=== PATIENT | female | born 1950 | race Caucasian/White ===

== ENCOUNTER 2018-05-11 17:14 | Inpatient (IN) | payer MEDICARE ==
[2018-05-11] MEDS ORDERED: methylPREDNISolone SOD SUCCI 125 MG/2 ML VIAL IV STA (18:20)
[2018-05-11] MEDS ORDERED: VANCOMYCIN IV PER PHARMACY 1 EACH MISC MISCELLANE PRN (18:23)
[2018-05-11] MEDS ORDERED: MORPHINE SULFATE 4 MG/ML SYRINGE IVP PRN (18:23)
[2018-05-11] MEDS ORDERED: MORPHINE SULFATE 4 MG/ML SYRINGE IVP STA (18:23)
--- NOTE | 2018-05-11 18:28 | ED ---
General Adult HPI - General Chief complaint: Extremity Problem,Nontraumatic Stated complaint: fall/chest pain/cellulitis Time Seen by Provider: 05/11/18 17:23 Source: patient, EMS, RN notes reviewed, old records reviewed Mode of arrival: EMS Limitations: no limitations - History of Present Illness Initial comments: This is a 67-year-old female the ER for multiple medical complaints. is accepted in transfer for evaluation regarding multiple comorbidities. Patient currently denies any complaints of chest pain shortness of breath or abdominal pain. Patient states she is very hungry. Patient with transferring physician patient has multiple issues was found after a fall and weakness and inability to get up. Did have found elevated troponin known gangrene of right lower extremity. - Related Data Home Medications Medication Instructions Recorded Confirmed Cyclobenzaprine [Flexeril] 10 mg PO BID 05/11/18 05/11/18 Fluticasone Nasal [place] [Flonase 1 spray EA NOSTRIL DAILY 05/11/18 05/11/18 Nasal [place]] Isosorbide Mononitrate ER [Imdur] 30 mg PO DAILY 05/11/18 05/11/18 Naproxen 500 mg PO BID 05/11/18 05/11/18 Nitroglycerin Sl Tabs [Nitrostat] 0.4 mg PO Q5M PRN 05/11/18 05/11/18 OXcarbazepine [Trileptal] 450 mg PO DAILY 05/11/18 05/11/18 Omeprazole 20 mg PO DAILY 05/11/18 05/11/18 Simvastatin 80 mg PO DAILY 05/11/18 05/11/18 Venlafaxine HCl [Effexor XR] 150 mg PO DAILY 05/11/18 05/11/18 glipiZIDE [Glucotrol] 10 mg PO BID 05/11/18 05/11/18 Allergies Allergy/AdvReac Type Severity Reaction Status Date / Time acetaminophen [From Vicodin] Allergy Unknown Verified 05/11/18 18:08 Carbapenems Allergy Unknown Verified 05/11/18 18:04 copper Allergy Unknown Verified 05/11/18 18:08 haloperidol [From Haldol] Allergy Unknown Verified 05/11/18 18:08 hydrocodone [From Vicodin] Allergy Unknown Verified 05/11/18 18:08 Iodine and Iodide Containing Allergy Unknown Verified 05/11/18 18:08 Produc latex Allergy Unknown Verified 05/11/18 18:08 lisinopril Allergy Unknown Verified 05/11/18 18:04 morphine Allergy Unknown Verified 05/11/18 18:04 Review of Systems ROS Statement: Those systems with pertinent positive or pertinent negative responses have been documented in the HPI. ROS Other: All systems not noted in ROS Statement are negative. Past Medical History Past Medical History: Cancer, COPD, CVA/TIA, Diabetes Mellitus, Myocardial Infarction ([place]) Additional Past Medical History / Comment(s): uterine cancer, hiatal hernia, History of Any Multi-Drug Resistant Organisms: None Reported Past Psychological History: No Psychological Hx Reported Smoking Status: Current every day smoker Past Alcohol Use History: None Reported Past Drug Use History: None Reported General Exam - General Exam Comments Initial Comments: Patient does have right second toe dry gangrene Limitations: no limitations General appearance: alert, in no apparent distress Head exam: Present: atraumatic, normocephalic, normal inspection Eye exam: Present: normal appearance, PERRL, EOMI. Absent: scleral icterus, conjunctival injection, periorbital swelling ENT exam: Present: normal exam, mucous membranes moist Neck exam: Present: normal inspection. Absent: tenderness, meningismus, lymphadenopathy Respiratory exam: Present: normal lung sounds bilaterally. Absent: respiratory distress, wheezes, rales, rhonchi, stridor Cardiovascular Exam: Present: regular rate, normal rhythm, normal heart sounds. Absent: systolic murmur, diastolic murmur, rubs, gallop, clicks GI/Abdominal exam: Present: soft, normal bowel sounds. Absent: distended, tenderness, guarding, rebound, rigid Extremities exam: Present: normal inspection, full ROM, normal capillary refill. Absent: tenderness, pedal edema, joint swelling, calf tenderness Back exam: Present: normal inspection Neurological exam: Present: alert, oriented X3, CN II-XII intact Psychiatric exam: Present: normal affect, normal mood Skin exam: Present: warm, dry, intact, normal color. Absent: rash Course Vital Signs 05/11/18 17:59 Temperature 98.5 F Pulse Rate 100 Respiratory 18 Rate Blood Pressure 102/57 O2 Sat by Pulse 98 Oximetry Medical Decision Making - Medical Decision Making 67 female accepted in transfer for evaluation regarding multiple issues including falls with weakness, elevated troponin, gangrene toe. To be admitted for evaluation and management of above Disposition Clinical Impression: Cellulitis, Gangrene, COPD (chronic obstructive pulmonary disease), Falls, Weak , Elevated troponin Disposition: ADMITTED IP TO THIS HOSP Condition: Fair Referrals: Bassem East MD [Primary Care Provider] - 1-2 days
[2018-05-11] MEDS ORDERED: VANCOMYCIN 1,500 MG in SODIUM CHLORIDE 0.9% 250 ML IVPB ONE (19:00)
[2018-05-11] MEDS: IPRATROPIUM-ALBUTEROL 3 ML NEB INHALATION SCH (19:29)
[2018-05-11] MEDS: SODIUM CHLORIDE 0.9% 1,000 ML IV SCH (19:38)
[2018-05-11 22:58] LABS: Basophils % (A) 0 %; Eosinophils % (A) 0 %; HCT 31.5 % (34.0-46.0); HGB 9.7 gm/dL (11.4-16.0); Hypochromasia Slight; Lymphocytes # (A) 0.4 k/uL (1.0-4.8); Lymphocytes % (A) 3 %; MCHC 30.8 g/dL (31.0-37.0); MCV 90.8 fL (80.0-100.0); Mean Platelet Volume 7.1; Monocytes # (A) 0.3 k/uL (0-1.0); Monocytes % (A) 2 %; Neutrophils # (A) 12.5 k/uL (1.3-7.7); Neutrophils % (A) 93 %; Platelet Count 306 k/uL (150-450); RBC 3.47 m/uL (3.80-5.40); RDW 14.3 % (11.5-15.5); WBC 13.3 k/uL (3.8-10.6)
[2018-05-11 23:14] LABS: Calcium 8.8 mg/dL (8.4-10.2); Potassium 4.7 mmol/L (3.5-5.1)
[2018-05-11] MEDS: methylPREDNISolone SOD SUCCI 125 MG/2 ML VIAL IV SCH (23:44)
[2018-05-11] MEDS: AMPICILLIN-SULBACTAM 3 GM in SODIUM CHLORIDE 0.9% 100 ML IVPB SCH (23:44)
[2018-05-12 02:07] VITALS: BMI 31.6
[2018-05-12 06:03] LABS: Glucose,Whole Blood 457 mg/dL (75-99)
[2018-05-12 06:03] LABS: Glucose,Whole Blood 449 mg/dL (75-99)
[2018-05-12] MEDS: methylPREDNISolone SOD SUCCI 125 MG/2 ML VIAL IV SCH (06:30)
[2018-05-12] MEDS: AMPICILLIN-SULBACTAM 3 GM in SODIUM CHLORIDE 0.9% 100 ML IVPB SCH ×3 (06:30→17:25)
[2018-05-12] MEDS: INSULIN ASPART 100 UNIT/ML 1 ML 10 ML VIAL SQ SCH ×3 (06:30→17:22)
[2018-05-12 06:48] LABS: Basophils % (A) 0 %; Eosinophils % (A) 0 %; HGB 10.2 gm/dL (11.4-16.0); Hypochromasia Moderate; Lymphocytes # (A) 0.5 k/uL (1.0-4.8); Lymphocytes % (A) 4 %; MCH 27.9 pg (25.0-35.0); MCHC 30.1 g/dL (31.0-37.0); MCV 92.8 fL (80.0-100.0); Mean Platelet Volume 7.3; Monocytes # (A) 0.2 k/uL (0-1.0); Monocytes % (A) 1 %; Neutrophils # (A) 13.2 k/uL (1.3-7.7); Neutrophils % (A) 94 %; Platelet Count 344 k/uL (150-450); RBC 3.66 m/uL (3.80-5.40); RDW 14.3 % (11.5-15.5)
[2018-05-12 07:08] LABS: Calcium 9.1 mg/dL (8.4-10.2); Potassium 5.6 mmol/L (3.5-5.1); Total Bilirubin 0.3 mg/dL (0.2-1.3); Total Protein 5.8 g/dL (6.3-8.2)
[2018-05-12] MEDS: IPRATROPIUM-ALBUTEROL 3 ML NEB INHALATION SCH ×4 (07:13→16:04)
[2018-05-12] MEDS ORDERED: ENOXAPARIN 40 MG/0.4 ML SYRINGE SQ SCH (09:00)
[2018-05-12] MEDS ORDERED: VANCOMYCIN 1,250 MG in SODIUM CHLORIDE 0.9% 250 ML IVPB SCH (10:00)
[2018-05-12] MEDS ORDERED: ATORVASTATIN 40 MG TAB PO SCH (10:00)
[2018-05-12] MEDS ORDERED: ISOSORBIDE MONONITRATE ER 30 MG TAB.ER.24H PO SCH (10:00)
[2018-05-12] MEDS ORDERED: ASPIRIN 81 MG PO SCH (10:15)
--- NOTE | 2018-05-12 10:32 | CONS ---
CONSULTATION Mrs. Floyd is a 67-year-old female who was transferred from [place] for further evaluation. The patient presented there with recurrent falls. According to her, she has fallen 8 times yesterday and was on the ground for a while. She has some redness in the leg and because of that she came in. She was found to have minimal troponin elevation. The patient denies any change in her breathing. She denies any palpitation or syncope. She has a history of coronary artery disease. According to her has underwent cardiac catheterization by Dr. Mei a few years ago. Details of that are not available to me. She was told she has obstructive disease and prior myocardial infarction although it is not clear. She has no history of CHF, very rare use of nitroglycerin. She is quite teary while I am talking to her and crying at times. She denies any palpitation. She has some peripheral edema. No clear PND no orthopnea. Her coronary risk factors are remarkable for history of chronic tobacco use, history of hyperlipidemia, diabetes. MEDICATIONS: Her medications at home medications include simvastatin 80 mg daily, isosorbide mononitrate 30 mg daily, glipizide, venlafaxine, omeprazole, Naprosyn, Flexeril, and Trileptal. REVIEW OF SYSTEMS: RESPIRATORY SYSTEM: She had dyspnea on exertion. No recent wheezing. GI SYSTEM: She had some abdominal discomfort, but no recent GI bleeding. She has some nausea. SYSTEM: No dysuria or hematuria. NERVOUS SYSTEM: She denies stroke. PHYSICAL EXAMINATION: A 67-year-old female, appears older than stated age. Teary eyes, crying at times. Blood pressure running in the 140s to 150s with the heart rate in the 90s. HEAD: Normocephalic with a lesion on her scalp. EYES: Sclerae anicteric. NECK: Normal carotid upstroke. No bruit. LUNGS: Clear to auscultation. HEART: Regular rate and rhythm, S1, S2. No S3. With systolic murmur heard at the base. No diastolic murmur. No rub. ABDOMEN: Soft, nontender. Positive bowel sounds. No organomegaly. EXTREMITIES: With 1+ edema bilaterally and erythema. Decreased distal pulses. She has a necrotic right second toe. LAB DATA: Lab data revealed a BUN and creatinine 53 and 1.4, potassium 5.6, AST of 61, alkaline phosphatase of 265, hemoglobin of 10.2, white blood cell of 14. On the lab data in [place], the troponin is 0.57. Her EKG revealed a sinus mechanism, rate of [address]-T wave changes. IMPRESSION: 1. Multiple falls, etiology unclear. 2. Cellulitis, probable gangrene of the toe. 3. History of coronary artery disease according to the patient, details not available. 4. Minimal elevation of troponin does not represent a type 1 event most likely type 2 event. 5. Chronic tobacco use. 6. History of diabetes. 7. Hyperlipidemia. 8. Renal failure. RECOMMENDATION: From the cardiac standpoint, I will re-initiate the treatment with the isosorbide and the statin. I will add a beta-imelda to her regimen. Obtain echocardiogram with Doppler. Follow her renal function. The patient will be started on aspirin 81 mg daily. I will try to obtain the prior testing. Depending on her progress, further recommendation will be made. Thank you for this consult. We will follow with you. MMODL / IJN: [id number] /
--- NOTE | 2018-05-12 10:57 | XR ---
EXAMINATION TYPE: XR chest 1V DATE OF EXAM: 05/12/2018 COMPARISON: 04/25/2013 INDICATION: COPD TECHNIQUE: Single frontal view of the chest is obtained. FINDINGS: The heart size is normal. The pulmonary vasculature is normal. The lungs are clear. IMPRESSION: 1. No acute pulmonary process.
[2018-05-12] MEDS: SODIUM CHLORIDE 0.9% 1,000 ML IV SCH ×2 (11:03→14:13)
--- NOTE | 2018-05-12 11:48 | P.CNPUL ---
History of Present Illness Consult date: 05/12/18 Requesting physician: Ranjeet Garg Reason for consult: dyspnea, COPD Chief complaint: Fall, weakness History of present illness: This is a 67-year-old female patient who follows with Dr. East as her primary care physician. She has history of previous CVA/TIA with aphasia, diabetes mellitus, coronary artery disease/myocardial infarction, uterine cancer, hiatal hernia, renal failure, cellulitis of the right foot with a necrotic second toe. She also has a history of chronic obstructive pulmonary disease and chronic and ongoing tobacco dependence and follows in our office with Dr. Lea for the same. She was transferred here from [facility] yesterday after being admitted for a fall at home and injuring the back of her head. Computed tomography scan of the brain showed no acute process. She did have cellulitis of the right foot and a very necrotic right second toe, she also had a troponin leak and was transferred here for further evaluation. She has been initiated on vancomycin and Unasyn. She is seen today in consultation on the selective care unit. She is currently awake and alert. She is somewhat emotional, teary- eyed and crying. She's been rather noncompliant with the staff. She did recognize Dr. Lea and is cooperative with him. She currently denies any worsening shortness of breath, cough or congestion. Chest x-ray showed no acute pulmonary process. She is afebrile. White count 14.0. Maintaining O2 saturations in the 90s on 2 L/m per nasal cannula. She's been initiated on bronchodilators but has refused them. Review of Systems Constitutional: Reports chronic pain, Reports weakness Eyes: denies blurred vision, denies decreased vision Ears: deny: decreased hearing Ears, nose, mouth and throat: Reports dysphagia Cardiovascular: Reports decreased exercise tolerance, Reports shortness of breath Respiratory: Reports dyspnea Gastrointestinal: Denies abdominal pain, Denies diarrhea, Denies nausea, Denies vomiting Genitourinary: Denies dysuria, Denies hematuria Musculoskeletal: Reports frequent falls, Reports gait dysfunction, Reports limitation of motion, Reports muscle weakness, Reports redness of joints Musculoskeletal: right: foot pain, foot swelling Integumentary: Reports foot/leg ulcers, Reports sores Neurological: Reports aphasia, Reports balance difficulties, Reports change in mentation, Reports head injury, Reports lack of coordination, Reports weakness Endocrine: Denies fatigue, Denies weight change Hematologic/Lymphatic: Reports as per HPI Allergic/Immunologic: Reports as per HPI Past Medical History Past Medical History: Cancer, COPD, CVA/TIA, Diabetes Mellitus, Myocardial Infarction ([place]) Additional Past Medical History / Comment(s): uterine cancer, hiatal hernia, Last Myocardial Infarction Date:: n/a History of Any Multi-Drug Resistant Organisms: None Reported Past Surgical History: No Surgical Hx Reported Past Anesthesia/Blood Transfusion Reactions: No Reported Reaction Past Psychological History: Depression Smoking Status: Current some day smoker Past Alcohol Use History: None Reported Additional Past Alcohol Use History / Comment(s): started smoking at the age of 15 Past Drug Use History: None Reported - Past Family History Father Family Medical History: No Reported History Medications and Allergies Home Medications Medication Instructions Recorded Confirmed Type Cyclobenzaprine [Flexeril] 10 mg PO BID 05/11/18 05/11/18 History Fluticasone Nasal [place] [Flonase 1 spray EA NOSTRIL DAILY 05/11/18 05/11/18 History Nasal [place]] Isosorbide Mononitrate ER [Imdur] 30 mg PO DAILY 05/11/18 05/11/18 History Naproxen 500 mg PO BID 05/11/18 05/11/18 History Nitroglycerin Sl Tabs [Nitrostat] 0.4 mg PO Q5M PRN 05/11/18 05/11/18 History OXcarbazepine [Trileptal] 450 mg PO DAILY 05/11/18 05/11/18 History Omeprazole 20 mg PO DAILY 05/11/18 05/11/18 History Simvastatin 80 mg PO DAILY 05/11/18 05/11/18 History Venlafaxine HCl [Effexor XR] 150 mg PO DAILY 05/11/18 05/11/18 History glipiZIDE [Glucotrol] 10 mg PO BID 05/11/18 05/11/18 History Allergies Allergy/AdvReac Type Severity Reaction Status Date / Time acetaminophen [From Vicodin] Allergy Unknown Verified 05/11/18 18:08 Carbapenems Allergy Unknown Verified 05/11/18 18:04 copper Allergy Unknown Verified 05/11/18 18:08 haloperidol [From Haldol] Allergy Unknown Verified 05/11/18 18:08 hydrocodone [From Vicodin] Allergy Unknown Verified 05/11/18 18:08 Iodine and Iodide Containing Allergy Unknown Verified 05/11/18 18:08 Produc latex Allergy Unknown Verified 05/11/18 18:08 lisinopril Allergy Unknown Verified 05/11/18 18:04 morphine Allergy Unknown Verified 05/11/18 18:04 Physical Exam Vitals: Vital Signs Temp Pulse Pulse Resp BP BP Pulse Ox 05/12/18 08:00 98.5 F 114 H 22 150/66 97 05/11/18 23:00 97.8 F 89 18 95/50 96 05/11/18 22:00 97.9 F 108 H 20 140/62 96 05/11/18 20:28 95 17 93/54 05/11/18 19:40 96 18 05/11/18 19:36 94 L 05/11/18 19:31 95 18 05/11/18 19:20 99 16 97/54 94 L 05/11/18 17:59 98.5 F 100 18 102/57 98 Intake and Output 05/11/18 05/12/18 05/12/18 22:59 06:59 14:59 Intake Total 200 Balance 200 Intake: Intake, IV Titration 200 Amount Sodium Chloride 0.9% 1, 200 000 ml @ 100 mls/hr IV . Q10H [facility] Rx#:[id number] Other: Voiding Method Bedside Commode # Voids 1 Weight 71 kg - Constitutional General appearance: disheveled, obese - EENT Eyes: EOMI, PERRLA ENT: hearing grossly normal Ears: bilateral: normal - Neck Neck: normal ROM Carotids: bilateral: upstroke normal Thyroid: bilateral: normal size - Respiratory Respiratory: bilateral: CTA - Cardiovascular Rhythm: regular Heart sounds: normal: S1, S2 Abnormal Heart Sounds: systolic murmur - Gastrointestinal General gastrointestinal: normal bowel sounds - Integumentary Integumentary: cellulitis - Neurologic Neurologic: CNII-XII intact - Musculoskeletal Musculoskeletal: generalized weakness - Psychiatric Psychiatric: A&O x's 3 Results - Laboratory Findings CBC and BMP: 05/12/18 06:16 05/12/18 06:16 Abnormal lab findings: Abnormal Labs 05/11/18 05/11/18 05/12/18 22:50 22:50 05:59 WBC 13.3 H RBC 3.47 L Hgb 9.7 L Hct 31.5 L MCHC 30.8 L Neutrophils # 12.5 H Lymphocytes # 0.4 L Sodium Potassium Carbon Dioxide BUN 48 H Creatinine 1.30 H Glucose 315 H POC Glucose (mg/dL) 457 H AST Alkaline Phosphatase Total Protein Albumin 05/12/18 05/12/18 05/12/18 06:01 06:16 06:16 WBC 14.0 H RBC 3.66 L Hgb 10.2 L Hct MCHC 30.1 L Neutrophils # 13.2 H Lymphocytes # 0.5 L Sodium 136 L Potassium 5.6 H Carbon Dioxide 18 L BUN 53 H Creatinine 1.40 H Glucose 447 H POC Glucose (mg/dL) 449 H AST 61 H Alkaline Phosphatase 265 H Total Protein 5.8 L Albumin 3.0 L - Diagnostic Findings Chest x-ray: image reviewed Assessment and Plan Assessment: Impression: #1 Multiple falls from unclear etiology. Previous history of CVA with aphasia. Trauma to the back of her head, computed tomography scan revealed no acute abnormalities. #2 Necrotic right second toe with erythema, warmth of the foot. Currently on vancomycin and Unasyn. Vascular consult pending. #3 Altered mental status. #4 Acute on chronic renal failure. #5 Anemia. #6 Hyperkalemia. #7 Chronic obstructive pulmonary disease, currently inactive and stable. #8 Chronic and ongoing tobacco dependence. #9 History of coronary artery disease. #10 Hypertension. #11 Diabetes mellitus. #12 History of depression. #13 Poor overall functional performance based on the above-mentioned multiple comorbidities. Plan: The patient was seen and evaluated by Dr. Lea. Chest x-ray and labs were reviewed. No acute pulmonary process. We'll continue with bronchodilators for now. Continue vancomycin and Unasyn. Await vascular consultation regarding the necrotic right second toe. Lovenox for DVT prophylaxis. We will continue to follow make further recommendations based on her clinical status. I, the cosigning physician, performed a history & physical examination of the patient. Lungs sounds are clear, diminished. Maintaining good O2 saturations in the 90s on 2 L/m per nasal cannula. I discussed the assessment and plan of care with my nurse practitioner, Zoe Sainz. I attest to the above consultation as dictated by her. Time with Patient: Greater than 30
--- NOTE | 2018-05-12 12:39 | FL ---
EXAMINATION TYPE: FL barium swallow w video DATE OF EXAM: 05/12/2018 COMPARISON: NONE HISTORY: Aspiration TECHNIQUE: Fluoroscopy. FINDINGS: Fluoroscopic guidance was provided for the procedure performed in conjunction with the [facility] [place] [facility]. Please see complete report forthcoming from the Speech Pathology departmen t. Various consistencies from thin liquid to solids were administered. Fluoroscopy time 2.58 minutes. Number of images: 0. Aspiration with thin and nectar thick liquids is evident along the posterior trachea. Coughing was ev ident during this aspiration. Deep penetration was also present with these consistencies. No penetrat ion or aspiration was evident with solids or nectar thick. There was pooling within the vallecula with delayed transit. IMPRESSION: 1. Aspiration with thin and nectar thick liquids.
[2018-05-12 12:53] LABS: Glucose,Whole Blood 424 mg/dL (75-99)
[2018-05-12 15:19] VITALS: BP 121/60; RESP 18; TEMP 98.3
[2018-05-12] MEDS ORDERED: NITROGLYCERIN SL TABS 0.4 MG TAB SUBLINGUAL PRN (16:03)
[2018-05-12 16:04] VITALS: PULSE 100
[2018-05-12 16:25] LABS: Glucose,Whole Blood 304 mg/dL (75-99)
--- NOTE | 2018-05-12 17:02 | HP ---
HISTORY AND PHYSICAL DATE OF ADMISSION: 05/11/18 DATE OF SERVICE: 05/12/18 PRESENTING COMPLAINT: Fall to the ground. HISTORY OF PRESENTING COMPLAINT: This is a 67-year-old patient follows with Dr. East. The patient's chronic stable medical conditions include COPD, gait dysfunction, coronary artery disease. The patient apparently lives with her son. The patient has been having multiple falls, fell down again, apparently was on the floor for 15 hours. Son had called and then patient was taken to [facility]. The patient also has developed gangrene of the right second toe going on for good at least 2-3 months. The patient is not taking any medical opinion because of insurance and she owes some bills. Some redness is present and adjoining part of the foot. The patient was noticed last night having trouble swallowing and speech therapy was consulted for the same. This morning, the patient did have a modified barium swallow and patient had penetration to both thin and thick liquids and was suggested to be n.p.o. Speech therapy and nursing informed me patient is very irate about the same and wanted real food and she wanted to leave against medical advice and she has already called her son to take her from here. The patient does smoke cigarettes. Currently lives with her son. The patient has been smoking for close to 42 years. Denies alcohol. The patient also complained of pain all over the body. No particular side including the feet. FAMILY HISTORY: Reviewed; noncontributory presentation. HOME MEDICATIONS: 1. Nitrostat 0.4 q.5h p.r.n. 2. Simvastatin 80 mg a day. 3. Imdur ER 30 mg a day. 4. Flonase 1 spray each nostril daily. 5. Glucotrol 10 mg p.o. b.i.d. 6. Effexor XR 150 mg a day. 7. Omeprazole 20 mg a day. 8. Naproxen 500 mg p.o. b.i.d. 9. Flexeril 10 mg p.o. b.i.d. 10.Trileptal 450 mg p.o. daily. ALLERGIES: To VICODIN, CARBAPENEMS, COPPER, HALDOL, IV CONTRAST DYE, LATEX, LISINOPRIL, MORPHINE. PHYSICAL EXAMINATION: Temperature 99.7, pulse 97, respiratory 20, blood pressure 120/79, pulse ox 93% on 2 L. GENERAL APPEARANCE: Lying in bed, somewhat uncomfortable. BMI 31.6. EYES: Pupils equal. Conjunctivae normal. HEENT: External appearance of nose and ears normal. Oral cavity normal. NECK: JVD not raised. Mass not palpable. Respiratory effort increased. LUNGS: Diminished breath sounds. CARDIOVASCULAR: 1st and 2nd sounds normal. No edema. ABDOMEN: Soft, nontender. Liver and spleen not palpable. LYMPHATIC: No lymph palpable in the neck or axillae. PSYCHIATRY: Alert and oriented x3. Mood and affect anxious-appearing. NEUROLOGICAL: Pupils equal. Cranial nerves grossly intact. Decreased sensation distally. DERMATOLOGICAL: Patient has gangrene of the right foot 2nd toe with area surrounding cellulitis. The patient has got poor pulses in both the feet and dry skin. INVESTIGATIONS: White count 13.3, hemoglobin 9.7, potassium 4.7, BUN 48, creatinine 1.30, repeat 53 and 1.40. Albumin 3.0. The patient's lab work from the [facility] shows chest x-ray to be clear. CT scan of the head, neck and spine shows some DJD and scalp hematoma. ASSESSMENT: 1. Chronic kidney disease stage III. Cannot rule out an acute component. It may be noted that the patient is already also on naproxen that could be contributing. 2. Chronic obstructive pulmonary disease in a current smoker. 3. Chronic nicotine dependence. Patient is a cigarette smoker. 4. Coronary artery disease with prior history of myocardial infarction. 5. Hiatal hernia. 6. Acute gangrene of the right second toe. A chronic component cannot be ruled out. 7. Possible peripheral arterial disease. 8. Depression, not otherwise specified. 9. Diabetes mellitus type 2 on oral hypoglycemic. 10.Recurrent falls, multifactorial, including peripheral neuropathy. 11.Peripheral neuropathy probably from diabetes. 12.Dysphagia as confirmed by penetration with modified barium swallow. High risk of aspiration. 13.Diabetes mellitus type 2 on oral hypoglycemic, uncontrolled with hyperglycemia. PLAN: Sugars are uncontrolled; hence, patient will be put on insulin drip. Vascular Surgery was consulted with a view to the gangrene and further evaluation of the vascular status. The patient is on IV Unasyn and vancomycin. Because of small troponin leak, Cardiology was consulted. The patient is known to Dr. Lea. Also consultation was made to vascular surgery, Dr. Jane. The patient wants food and does not want to be n.p.o. Does not want to discuss this further. She has already called her son to take her from here. Nursing did get a message from the son. He is going to picker the patient that is his mother. I did try to explain to the patient the importance of staying here and getting treated. At this point she only wants to go home and that is all she is concerned about. LEONORA / LENNY: [id number] /
[2018-05-12] MEDS ORDERED: NAPROXEN 250 MG TAB PO SCH (21:00)
[2018-05-12] MEDS ORDERED: CYCLOBENZAPRINE 10 MG TAB PO SCH (21:00)
[2018-05-12] MEDS ORDERED: glipiZIDE 10 MG TAB PO SCH (21:00)
[2018-05-13] MEDS ORDERED: NON-FORMULARY DRUG (Simvastatin [Simvastatin] 80 MG) PO SCH (09:00)
[2018-05-13] MEDS ORDERED: OXcarbazepine 150 MG TAB PO SCH (09:00)
[2018-05-13] MEDS ORDERED: VENLAFAXINE HCL ER 150 MG CAP PO SCH (09:00)
[2018-05-13] MEDS ORDERED: PANTOPRAZOLE 40 MG TABLET PO SCH (09:00)
--- NOTE | 2018-05-17 14:16 | DS ---
DISCHARGE SUMMARY DATE OF ADMISSION: May 11, 2018. DATE LEFT AGAINST MEDICAL ADVICE: May 12, 2018. FINAL DIAGNOSES: 1. Recurrent falls, multifactorial. 2. Chronic kidney disease stage 3 could be nephrosclerosis and interstitial nephritis. 3. Chronic obstructive pulmonary disease in a current smoker. 4. Chronic nicotine dependence, patient is a cigarette smoker. 5. Coronary artery disease, prior history of myocardial infarction. 6. Hiatal hernia. 7. Acute gangrene of the right second toe. 8. Possible peripheral artery disease. 9. Depression, not otherwise specified. 10.Diabetes mellitus type 2 on oral hypoglycemic. 11.Recurrent falls, multiple including peripheral neuropathy. 12.Peripheral neuropathy secondary to diabetes. 13.Dysphagia confirmed by penetration of liquids with modified barium swallow. High risk of recurrent aspiration. 14.Diabetes mellitus type 2 on oral hypoglycemic, uncontrolled with hypoglycemia. HOSPITAL COURSE: This patient presented with recurrent falls, transferred from [facility]. The patient is found to have gangrene of the right toe, started on antibiotics. There was trouble with swallowing. She did fail a modified barium swallow. I did speak to speech therapy. She was suggesting maybe a PEG tube. In the meantime, patient was rather irate and wanted food, did not want to stay back. Did not want any further treatment. I did try to explain to her at length the importance of her doing this and she will need consultants including vascular surgery to evaluate her toe infected, but the patient refused to same. She wanted to go. In the meantime, patient's son had called the nurse and the patient then decided to leave [place] later in the day. Copy to Dr. East. LEONORA / LENNY: [id number] /
== END 2018-05-12 19:07 | disposition left against medical advice (07) | DRG 300 ==
LOC: EC 17:14 → 6SEL 18:21 → UNDODISIN 05-12 18:52
PROVIDERS: ADMIT Hospitalist; ATTEND Hospitalist
DX: E11.52 Type 2 diabetes mellitus with diabetic peripheral angiopathy with gangrene (principal); L03.115 Cellulitis of right lower limb; N17.9 Acute kidney failure, unspecified; D64.9 Anemia, unspecified; E11.22 Type 2 diabetes mellitus with diabetic chronic kidney disease; E11.42 Type 2 diabetes mellitus with diabetic polyneuropathy; E11.65 Type 2 diabetes mellitus with hyperglycemia; E78.5 Hyperlipidemia, unspecified; E87.5 Hyperkalemia; F17.210 Nicotine dependence, cigarettes, uncomplicated; F32.9 Major depressive disorder, single episode, unspecified; I12.9 Hypertensive chronic kidney disease with stage 1 through stage 4 chronic kidney disease, or unspecified chronic kidney disease; I25.10 Atherosclerotic heart disease of native coronary artery without angina pectoris; I25.2 Old myocardial infarction; I69.320 Aphasia following cerebral infarction; J44.9 Chronic obstructive pulmonary disease, unspecified; K44.9 Diaphragmatic hernia without obstruction or gangrene; N18.3 Chronic kidney disease, stage 3 (moderate); R13.10 Dysphagia, unspecified; R29.6 Repeated falls; Z91.81 History of falling; Z79.84 Long term (current) use of oral hypoglycemic drugs; Z79.899 Other long term (current) drug therapy; Z85.42 Personal history of malignant neoplasm of other parts of uterus; Z91.19 Patient's noncompliance with other medical treatment and regimen; Z88.5 Allergy status to narcotic agent; Z88.8 Allergy status to other drugs, medicaments and biological substances; Z91.041 Radiographic dye allergy status; Z91.040 Latex allergy status; R74.8 Abnormal levels of other serum enzymes; G89.29 Other chronic pain; R26.9 Unspecified abnormalities of gait and mobility
CPT/HCPCS: 71045; 74230; 80048; 80053; 83036; 85025; 94640; 94760; 96374; 96375; 99285